=== PATIENT | male | born 1965 | race Caucasian/White ===

== ENCOUNTER 2023-03-15 11:31 | Emergency (ER) | payer OTHER, SELFPAY ==
--- NOTE | ~2023-03-15 | CT_ITS ---
EXAMINATION: CT ABDOMEN AND PELVIS WITHOUT CONTRAST CLINICAL INFORMATION: Left upper quadrant and left lower quadrant and flank pain. Vomiting. COMPARISON: None available. TECHNIQUE: Multidetector volumetric imaging was performed from the superior aspect of the liver through the pubic symphysis. Sagittal and coronal reformatted images were obtained on the technologist's workstation. This CT examination was performed using dose optimization techniques as appropriate, variously including the following: *Automated exposure control *Adjustment of mA and/or kV according to patient size (this includes techniques or standardized protocols for targeted exams where dose is matched to indication/reason for exam; i.e. extremities or head) *Use of iterative reconstruction technique DLP: 672 mGy-cm FINDINGS: LUNG BASES: The visualized lung bases are unremarkable. LIVER, GALLBLADDER, AND BILIARY TREE: The liver is normal in size, shape, and attenuation. No focal hepatic lesion or biliary ductal dilatation is present. The gallbladder is unremarkable with no evidence of radiopaque gallstones, gallbladder wall thickening, or obvious pericholecystic inflammatory changes. PANCREAS: Unremarkable. SPLEEN: Unremarkable. ADRENAL GLANDS: Unremarkable. KIDNEYS AND URETERS: Mild left hydronephrosis from a 2 x 4 mm left UPJ stone. Punctate 1 to 2 mm left lower pole renal stone. 3 mm right lower pole renal stone. BLADDER: Not optimally distended. GASTROINTESTINAL TRACT: The small and large bowel are unremarkable. The appendix is unremarkable. ABDOMINAL WALL: Small umbilical hernia containing fat. LYMPH NODES: Normal. VASCULAR: Atherosclerotic disease. No aneurysm. PELVIC VISCERA: Unremarkable. OSSEOUS STRUCTURES: Unremarkable. CT/CT abdomen pelvis wo IV con IMPRESSION: Mild left hydronephrosis from a 2 x 4 mm left UPJ stone. Small bilateral renal stones. Fleischner guidelines were followed.
[2023-03-15 12:26] VITALS: BP 143/82; PULSE 64; RESP 16; TEMP 37; O2SAT 98; BMI 32.2
--- NOTE | 2023-03-15 12:27 | ED_ITS ---
HPI - Abdominal Pain General Chief Complaint: Abdominal Pain <RONALD Carlton - Last Filed: 03/15/23 12:30> Stated Complaint: Abdominal Pain Vomiting <RONALD Carlton - Last Filed: 03/15/23 12:30> Time Seen by Provider: 03/15/23 16:05 <RONALD Carlton - Last Filed: 03/15/23 12:30> Source: patient <Kaveh Cavazos MD - Last Filed: 03/16/23 00:55> Mode of arrival: ambulatory <Kaveh Cavazos MD - Last Filed: 03/16/23 00:55> Limitations: no limitations <Kaveh Cavazos MD - Last Filed: 03/16/23 00:55> History of Present Illness HPI narrative: Patient with no significant past medical history woke up from sleep at 02:00 with left flank pain radiating to the left lower abdomen patient never had similar in the no history of kidney stone <Kaveh Cavazos MD - Last Filed: 03/16/23 00:55> Related Data Home Medications: Previous Rx's Medication Instructions Recorded oxycodone 5 mg tablet 5 mg PO Q6H PRN pain #20 tabs 03/15/23 tamsulosin 0.4 mg capsule (Flomax) 0.4 mg PO BEDTIME #10 caps 03/15/23 <RONALD Carlton - Last Filed: 03/15/23 12:30> Allergies/Adverse Reactions: Allergies Allergy/AdvReac Type Severity Reaction Status Date / Time No Known Allergies Allergy Verified 03/15/23 12:28 <RONALD Carlton - Last Filed: 03/15/23 12:30> Review of Systems Review of Systems Yes all other systems are reviewed and are negative <Kaveh Cavazos MD - Last Filed: 03/16/23 00:55> PMF Social History Social History: Social History Smoked in Last 30 Days: No Use of substances other than those prescribed or required for medical reasons: No Advance Directives: No Advance Directives Information Provided: Yes <RONALD Carlton - Last Filed: 03/15/23 12:30> Physical Exam ED Vital Signs: Vital Signs - 24 hr 03/15/23 12:26 03/15/23 16:26 03/15/23 18:29 Temperature 98.6 F 98.2 F Pulse Rate 64 67 71 Respiratory Rate 16 16 18 Blood Pressure 143/82 H 153/72 H 123/69 Pulse Oximetry 98 97 98 Oxygen Delivery Method Room Air Room Air Room Air BMI result Body Mass Index 32.2 <RONALD Carlton - Last Filed: 03/15/23 12:30> Vital Signs - 24 hr 03/15/23 12:26 03/15/23 16:26 03/15/23 18:29 Temperature 98.6 F 98.2 F Pulse Rate 64 67 71 Respiratory Rate 16 16 18 Blood Pressure 143/82 H 153/72 H 123/69 Pulse Oximetry 98 97 98 Oxygen Delivery Method Room Air Room Air Room Air BMI result Body Mass Index 32.2 <Kavhe Cavazos MD - Last Filed: 03/16/23 00:55> Appearance: Alert. Oriented X3. No acute distress. Eyes: PERRLA, No Nystagmus ENT: Pharynx normal. Oral Mucosa moist Neck: Normal inspection. Neck supple. CVS: Normal heart rate and rhythm. Pulses normal. Respiratory: No respiratory distress. Equal air entry bilateral, no wheezing/rales/rhonchi Abdomen: Soft and nontender. Bowel sounds are present, no mass palpable, left CVA tenderness ++ Skin: Skin warm and dry. Normal skin color. Normal skin turgor. Extremities: No lower extremity edema. No calf tenderness Neuro: Oriented X 3. <Kaveh Cavazos MD - Last Filed: 03/16/23 00:55> Course Course Course Narrative: RME - 57 yo male presents to the ER for evaluation of acute onset of left sided abdominal pain and vomiting that started at 2:30am. Pain is in the LUQ, left flank and radiates down into the LLQ. No urinary symptoms. No fever or chi lls. Plan: labs, UA, CT abd/pelvis <RONALD Carlton - Last Filed: 03/15/23 12:30> Medical Decision Making Medical Decision Making MDM Narrative: Patient with left UPJ 2 x 4 mm stone mild hydronephrosis will give IV fluids pain management <Kaveh Cavazos MD - Last Filed: 03/16/23 00:55> Lab Data [facility] Lab Attestation statement: I reviewed the patient's lab results. <Kaveh Cavazos MD - Last Filed: 03/16/23 00:55> Result Diagrams: 03/15/23 12:48 03/15/23 12:48 <RONALD Carlton - Last Filed: 03/15/23 12:30> Labs: Lab Results 03/15/23 03/15/23 03/15/23 Range/Units 12:48 12:48 16:59 WBC 13.3 H (4.8-10.8) X10*3/uL RBC 4.93 (4.60-5.80) X10*6/uL Hgb 14.6 (14.0-18.0) g/dl Hct 41.8 L (42.0-52.0) % MCV 84.8 (80.0-98.0) fL MCH 29.6 (27.0-33.0) pg MCHC 34.9 (31.0-36.0) g/dl RDW 12.9 (11.0-16.0) % Plt Count 319 (160-400) X10*3/uL MPV 9.2 L (9.4-12.4) fL Immature Gran % (Auto) 0.5 H (0.0-0.4) % Neut % (Auto) 80.5 H (45-73) % Lymph % (Auto) 11.3 L (20-40) % [place] % (Auto) 7.4 (2-11) % Eos % (Auto) 0.1 (0-4) % Baso % (Auto) 0.2 (0-2) % Lymph # (Auto) 1.5 (1.2-4.9) X10*3/uL [place] # (Auto) 1.0 (0.1-1.2) X10*3/uL Eos # (Auto) 0.0 (0.0-0.4) X10*3/uL Baso # (Auto) 0.0 (0.0-0.2) X10*3/uL Abs Immat Gran (auto) 0.06 H (0.00-0.03) X10*3/uL Absolute Neuts (auto) 10.7 H (2.0-8.3) x10*3/uL Absolute Nucleated RBC 0.000 (0.0-0.012) X10*3/uL Nucleated RBC % (auto) 0.0 (0.0-0.2) /100WBC Sodium 144 (135-145) mmol/L Potassium 4.8 (3.3-5.1) mmol/L Chloride 109 H (96-108) mmol/L Carbon Dioxide 29 (22-29) mmol/L Anion Gap 11 L (12-20) BUN 23 H (9-16) mg/dL Creatinine 1.03 (0.5-1.4) mg/dL Estim Creat Clear Calc 93.9 Estimated GFR > 60 Random Glucose 112 (60-115) mg/dL Calcium 9.4 (8.4-10.2) mg/dL Magnesium 1.9 (1.6-2.6) mg/dL Total Bilirubin 1.0 (0.0-1.0) mg/dL Direct Bilirubin 0.2 (0.0-0.5) mg/dL AST 24 (5-37) U/L ALT 46 H (0-40) U/L Alkaline Phosphatase 66 (39-117) U/L Total Protein 6.8 (6.5-8.0) g/dL Albumin 4.4 (3.5-5.0) g/dL Urine Color Yellow Urine Appearance Clear Urine pH 6.0 (5.0-9.0) Ur Specific [place] 1.020 (1.005-1.025) Urine Protein Negative (Neg-Trace) mg/dL Urine Glucose (UA) Negative (Negative) mg/dL Urine Ketones Trace (Negative) mg/dL Urine Blood Small (1+) H (Negative) Urine Nitrite Negative (Negative) Ur Leukocyte Esterase Negative (Negative) Urine RBC 0-2 (0-2) /HPF Urine WBC 0-5 (0-5) /HPF Ur Squamous Epith Cells 0-2 (0-2) /HPF Urine Bacteria None Seen (None Seen) Hyaline Casts 0-2 (0-2) /LPF <RONALD Carlton - Last Filed: 03/15/23 12:30> Lab Results 03/15/23 03/15/23 03/15/23 Range/Units 12:48 12:48 16:59 WBC 13.3 H (4.8-10.8) X10*3/uL RBC 4.93 (4.60-5.80) X10*6/uL Hgb 14.6 (14.0-18.0) g/dl Hct 41.8 L (42.0-52.0) % MCV 84.8 (80.0-98.0) fL MCH 29.6 (27.0-33.0) pg MCHC 34.9 (31.0-36.0) g/dl RDW 12.9 (11.0-16.0) % Plt Count 319 (160-400) X10*3/uL MPV 9.2 L (9.4-12.4) fL Immature Gran % (Auto) 0.5 H (0.0-0.4) % Neut % (Auto) 80.5 H (45-73) % Lymph % (Auto) 11.3 L (20-40) % [place] % (Auto) 7.4 (2-11) % Eos % (Auto) 0.1 (0-4) % Baso % (Auto) 0.2 (0-2) % Lymph # (Auto) 1.5 (1.2-4.9) X10*3/uL [place] # (Auto) 1.0 (0.1-1.2) X10*3/uL Eos # (Auto) 0.0 (0.0-0.4) X10*3/uL Baso # (Auto) 0.0 (0.0-0.2) X10*3/uL Abs Immat Gran (auto) 0.06 H (0.00-0.03) X10*3/uL Absolute Neuts (auto) 10.7 H (2.0-8.3) x10*3/uL Absolute Nucleated RBC 0.000 (0.0-0.012) X10*3/uL Nucleated RBC % (auto) 0.0 (0.0-0.2) /100WBC Sodium 144 (135-145) mmol/L Potassium 4.8 (3.3-5.1) mmol/L Chloride 109 H (96-108) mmol/L Carbon Dioxide 29 (22-29) mmol/L Anion Gap 11 L (12-20) BUN 23 H (9-16) mg/dL Creatinine 1.03 (0.5-1.4) mg/dL Estim Creat Clear Calc 93.9 Estimated GFR > 60 Random Glucose 112 (60-115) mg/dL Calcium 9.4 (8.4-10.2) mg/dL Magnesium 1.9 (1.6-2.6) mg/dL Total Bilirubin 1.0 (0.0-1.0) mg/dL Direct Bilirubin 0.2 (0.0-0.5) mg/dL AST 24 (5-37) U/L ALT 46 H (0-40) U/L Alkaline Phosphatase 66 (39-117) U/L Total Protein 6.8 (6.5-8.0) g/dL Albumin 4.4 (3.5-5.0) g/dL Urine Color Yellow Urine Appearance Clear Urine pH 6.0 (5.0-9.0) Ur Specific [place] 1.020 (1.005-1.025) Urine Protein Negative (Neg-Trace) mg/dL Urine Glucose (UA) Negative (Negative) mg/dL Urine Ketones Trace (Negative) mg/dL Urine Blood Small (1+) H (Negative) Urine Nitrite Negative (Negative) Ur Leukocyte Esterase Negative (Negative) Urine RBC 0-2 (0-2) /HPF Urine WBC 0-5 (0-5) /HPF Ur Squamous Epith Cells 0-2 (0-2) /HPF Urine Bacteria None Seen (None Seen) Hyaline Casts 0-2 (0-2) /LPF <Kaveh Cavazos MD - Last Filed: 03/16/23 00:55> Radiology Impression Discussion of test interpretation with radiology: I have reviewed the radiologist's reading. <Kaveh Cavazos MD - Last Filed: 03/16/23 00:55> Radiologist Impression: CT/CT abdomen pelvis wo IV con IMPRESSION: Mild left hydronephrosis from a 2 x 4 mm left UPJ stone. Small bilateral renal stones.? ? Fleischner guidelines were followed. <Kaveh Cavazos MD - Last Filed: 03/16/23 00:55> Medications Administered Discontinued Medications Generic Name Dose Route Start Last Admin Trade Name Freq PRN Reason Stop Dose Admin Sodium Chloride 1,000 mls @ 999 mls/hr 03/15/23 16:12 03/15/23 18:27 Ns IV 03/15/23 17:12 Infused .Q1H1M ONE Infusion Ketorolac Tromethamine 30 mg 03/15/23 16:12 03/15/23 17:19 Ketorolac Tromethamine 30 Mg/Ml Vial IVPUSH 03/15/23 16:13 30 mg ONCE ONE Administration Morphine Sulfate 4 mg 03/15/23 16:12 03/15/23 17:19 Morphine Sulfate 4 Mg/Ml Cartridge IVPUSH 03/15/23 16:13 4 mg ONCE ONE Administration Protocol Ondansetron HCl 4 mg 03/15/23 16:12 03/15/23 17:19 Ondansetron Hcl 4 Mg/2 Ml Vial IVPUSH 03/15/23 16:13 4 mg ONCE ONE Administration Oxycodone HCl 5 mg 03/15/23 17:56 03/15/23 18:28 Oxycodone Hcl Immed Release 5 Mg Tablet PO 03/15/23 17:57 5 mg ONCE ONE Administration Tamsulosin HCl 0.4 mg 03/15/23 16:12 03/15/23 17:19 Tamsulosin Hcl 0.4 Mg Capsule PO 03/15/23 16:13 0.4 mg ONCE ONE Administration <RONALD Carlton - Last Filed: 03/15/23 12:30> Medications Administered Discontinued Medications Generic Name Dose Route Start Last Admin Trade Name Aleida PRN Reason Stop Dose Admin Sodium Chloride 1,000 mls @ 999 mls/hr 03/15/23 16:12 03/15/23 18:27 Ns IV 03/15/23 17:12 Infused .Q1H1M ONE Infusion Ketorolac Tromethamine 30 mg 03/15/23 16:12 03/15/23 17:19 Ketorolac Tromethamine 30 Mg/Ml Vial IVPUSH 03/15/23 16:13 30 mg ONCE ONE Administration Morphine Sulfate 4 mg 03/15/23 16:12 03/15/23 17:19 Morphine Sulfate 4 Mg/Ml Cartridge IVPUSH 03/15/23 16:13 4 mg ONCE ONE Administration Protocol Ondansetron HCl 4 mg 03/15/23 16:12 03/15/23 17:19 Ondansetron Hcl 4 Mg/2 Ml Vial IVPUSH 03/15/23 16:13 4 mg ONCE ONE Administration Oxycodone HCl 5 mg 03/15/23 17:56 03/15/23 18:28 Oxycodone Hcl Immed Release 5 Mg Tablet PO 03/15/23 17:57 5 mg ONCE ONE Administration Tamsulosin HCl 0.4 mg 03/15/23 16:12 03/15/23 17:19 Tamsulosin Hcl 0.4 Mg Capsule PO 03/15/23 16:13 0.4 mg ONCE ONE Administration <Kaveh Cavazos MD - Last Filed: 03/16/23 00:55> Discharge Plan Discharge Clinical Impression: Kidney stone on left side <RONALD Carlton - Last Filed: 03/15/23 12:30> Patient Disposition: Home, Self-Care <RONALD Carlton - Last Filed: 03/15/23 12:30> Instructions: Kidney Stones (ED) <RONALD Carlton - Last Filed: 03/15/23 12:30> Additional Instructions: Drink plenty of fluids Pain medication and Flomax as prescribed Follow-up with urologist Report to ER if pain gets worse Your stone likely will pass <RONALD Carlton - Last Filed: 03/15/23 12:30> Prescriptions: New oxycodone 5 mg tablet 5 mg PO Q6H PRN (Reason: pain) Qty: 20 0RF Rx Instructions: Partial Fill upon patient request. tamsulosin [Flomax] 0.4 mg capsule 0.4 mg PO BEDTIME Qty: 10 0RF <RONALD Carlton - Last Filed: 03/15/23 12:30> Referrals: Valente Mayfield MD [Physician] - 3 days <RONALD Carlton - Last Filed: 03/15/23 12:30> Interventions: ED Discharge Assessment Last Done: 03/15/23 18:41 <RONALD Carlton - Last Filed: 03/15/23 12:30> Discharge Date/Time: 03/15/23 18:42 <RONALD Carlton - Last Filed: 03/15/23 12:30>
[2023-03-15 12:54] LABS: MANUAL DIFF FLAG NO
[2023-03-15 12:57] LABS: Basophils Percent Auto 0.2 % (0-2); Eosinophils Percent Auto 0.1 % (0-4); Hematocrit 41.8 % (42.0-52.0); Hemoglobin 14.6 g/dl (14.0-18.0); Imm Gran Abs Auto 0.06 X10*3/uL (0.00-0.03); Imm Gran Pct Auto 0.5 % (0.0-0.4); Lymphocytes Absolute Auto 1.5 X10*3/uL (1.2-4.9); Lymphocytes Percent Auto 11.3 % (20-40); Mean Corpuscular HGB Conc 34.9 g/dl (31.0-36.0); Mean Corpuscular Hemoglobin 29.6 pg (27.0-33.0); Mean Corpuscular Volume 84.8 fL (80.0-98.0); Mean Platelet Volume 9.2 fL (9.4-12.4); Monocytes Percent Auto 7.4 % (2-11); Neutrophils Absolute Auto 10.7 x10*3/uL (2.0-8.3); Neutrophils Percent Auto 80.5 % (45-73); Platelet Count 319 X10*3/uL (160-400); Red Blood Count 4.93 X10*6/uL (4.60-5.80); Red Cell Distribution Width 12.9 % (11.0-16.0); White Blood Count 13.3 X10*3/uL (4.8-10.8)
[2023-03-15 13:11] LABS: Alanine Aminotransferase 46 U/L (0-40); Albumin Level 4.4 g/dL (3.5-5.0); Alkaline Phosphatase 66 U/L (39-117); Anion Gap 11 (12-20); Aspartate Amino Transferase 24 U/L (5-37); Bilirubin Direct 0.2 mg/dL (0.0-0.5); Blood Urea Nitrogen 23 mg/dL (9-16); Calcium 9.4 mg/dL (8.4-10.2); Carbon Dioxide 29 mmol/L (22-29); Chloride 109 mmol/L (96-108); Creatinine Clr Calc Pharmacy 93.9; Estimated Glomerular Filt Rate > 60; Glucose Random 112 mg/dL (60-115); Magnesium 1.9 mg/dL (1.6-2.6); Potassium 4.8 mmol/L (3.3-5.1); Sodium 144 mmol/L (135-145); Total Protein 6.8 g/dL (6.5-8.0)
[2023-03-15 16:26] VITALS: BP 153/72; PULSE 67; RESP 16; TEMP 36.8; O2SAT 97
[2023-03-15 17:09] LABS: Appearance Urine Clear; Color Urine Yellow; Glucose Urine UA Negative (Negative); Leukocyte Esterase Urine Negative (Negative); Nitrite Urine Negative (Negative); UMIC TRIGGER UACC YES; Urine Blood Small (1+) (Negative); Urine Ketones Trace mg/dL (Negative); Urine Protein Negative (Neg-Trace)
[2023-03-15 17:17] LABS: Bacteria Urine None Seen (None Seen); Hyaline Casts Urine 0-2 /LPF (0-2); RBC Urine 0-2 /HPF (0-2); Squamous Epithelial Cell Urine 0-2 /HPF (0-2); WBC Urine 0-5 /HPF (0-5)
[2023-03-15] MEDS: 0.9 % Sodium Chloride 1,000 ML 999 ML IV (17:18)
[2023-03-15] MEDS: Tamsulosin HCL 0.4 MG CAPSULE PO (17:19)
[2023-03-15] MEDS: Morphine Sulfate 4 MG/ML CARTRIDGE IVPUSH (17:19)
[2023-03-15] MEDS: ondansetron HCL 4 MG/2 ML VIAL IVPUSH (17:19)
[2023-03-15] MEDS: Ketorolac Tromethamine 30 MG/ML VIAL IVPUSH (17:19)
[2023-03-15] MEDS: oxyCODONE HCl Immed Release 5 MG TABLET PO (18:28)
[2023-03-15 18:29] VITALS: BP 123/69; PULSE 71; RESP 18; O2SAT 98
== END 2023-03-15 18:42 | disposition home or self-care (01) ==
PROVIDERS: Physician Assistant; Emergency Provider Internal Medicine; PCP Internal Medicine
DX: N13.2 Hydronephrosis with renal and ureteral calculous obstruction (principal); R10.9 Unspecified abdominal pain
CPT/HCPCS: 36415; 74176; 80048; 80076; 81001; 83735; 85025; 96361; 96374; 96375; 99284; J1885; J2270; J2405

== ENCOUNTER → 2023-04-07 10:03 | Outpatient (BNVA) | payer OTHER, SELFPAY | PROVIDERS: PCP Internal Medicine; Visit Provider Nurse Practitioner Family | DX: N20.0 Calculus of kidney (principal) | CPT/HCPCS: 99202 ==

== ENCOUNTER 2023-04-21 09:50 | Outpatient (REF) | payer OTHER, SELFPAY ==
--- NOTE | ~2023-04-21 | US_ITS ---
EXAMINATION: US RETROPERITONEAL LIMITED (RENAL ONLY) CLINICAL INFORMATION: Calculus of kidney. COMPARISON: CT abdomen and pelvis 03/15/2023. TECHNIQUE: Real-time imaging of the kidneys. FINDINGS: RIGHT KIDNEY: 11.0 x 6.2 x 4.6 cm (SAG x AP x TRV). The kidney is normal in size, contour, and echogenicity. Renal cortical thickness is normal. No focal parenchymal lesions or hydronephrosis. Lower pole nonobstructing calculus measures 6 mm. Midpole nonobstructing calculus measures 6 mm. Midpole nonobstructing calculus measures 4 mm. LEFT KIDNEY: 12.4 x 5.7 x 4.5 cm (SAG x AP x TRV). The kidney is normal in size, contour, and echogenicity. Renal cortical thickness is normal. No calculi or focal parenchymal lesions. No hydronephrosis. US/US renal BI IMPRESSION: Nonobstructing right renal calculi. No hydronephrosis.
== END 2023-04-21 09:51 | disposition home or self-care (01) ==
LOC: HO.US 09:50
PROVIDERS: Visit Provider Nurse Practitioner Family
DX: N20.0 Calculus of kidney (principal)
CPT/HCPCS: 76775

== ENCOUNTER 2023-05-16 11:39 | Outpatient (AMB) | payer OTHER, SELFPAY ==
--- NOTE | 2023-05-16 11:41 | A.OFFVIS_ITS ---
Intake Intake Visit Reasons: 1m/US(SET) Intake Note: Patient presents for follow up ultrasound/nephrolithiasis (imaging 04/11/23) Urology Medications: Vitamin B6 Blood thinners: none Insights Manager Required: No Accompanied by: Self / Same As Patient Allergies No Known Allergies Allergy (Verified 05/16/23 22:17) Medication List - Last Reconciled 05/16/23 by STANISLAV Baltazar pyridoxine (vitamin B6) 100 mg PO DAILY 90 days HPI HPI Comments History of Present Illness Details Ed is a pleasant 57-year-old male patient of Dr. Renner. He presents to the office today for follow-up. Of note, patient was seen approximately 5 weeks ago as a new patient for nephrolithiasis at which time a renal ultrasound was ordered for further assessment evaluation. These results were reviewed with the patient today. Right kidney with 6 mm lower pole calculus, mid pole 6 mm calculus and 4 mm nonobstructing mid pole calculus. Left kidney with no calculi, lesions, and or hydronephrosis noted. When asked patient reports to be doing and feeling well. He reports compliance with vitamin B6 and attempts to continue drinking plenty of water daily. He does however report very infrequent/intermittent episodes of urinary urgency, urinary frequency and dysuria. He otherwise denies incontinence, nocturia, hematuria, foul smelling urine, changes to urinary stream, flank pain, fever, and or chills. He is happy with his current voiding parameters. In office urinalysis results reviewed with the patient today. Discussed at length potential causes for nephrolithiasis as well as further workup with 24 hour urine collection and labs verses continuation of surveillance monitoring. Review of Systems Const All systems reviewed & are unremarkable except as noted in HPI and below Reports no additional complaints Eyes Reports no additional complaints ENT Reports no additional complaints Card Reports no additional complaints Resp Reports no additional complaints GI Reports no additional complaints Reports as per HPI Musc Reports no additional complaints Neuro Reports no additional complaints Psych Reports no additional complaints Endo Reports no additional complaints Sage/Lymph Reports no additional complaints Aller/Immun Reports no additional complaints Physical Exam Const General: cooperative, comfortable, no acute distress, well developed, alert and awake Orientation/consciousness: patient oriented x3 HEENT Head: Yes normal to inspection, Yes normocephalic and Yes atraumatic Ears: hearing grossly normal bilaterally Eyes General: appearance normal, both eyes and all related structures Neck Neck: Yes normal visual inspection and Yes trachea midline Chest Chest palpation & inspection: normal inspection of the chest Resp Effort & Inspection: normal respiratory effort and able to speak in complete sentences Cardio Rate: regular rate GI Inspection: Yes normal to inspection General: Yes no CVA tenderness Back/Spine/Pelvis Back: no CVA tenderness Skin General skin exam: no rashes or lesions noted Neuro General: patient oriented x3 Extrem General: Yes normal to inspection Psych Appearance: grossly normal and well kempt Mental Status: mental status grossly normal Speech and movement: Normal speech and movement present and Clear speech present Affect: normal affect Attitude: cooperative Thought process: Normal thought process present Thought content: Normal thought content present Insight: Good insight present (Psych) Results AMB Urinalysis, Automated UA Leukoctes 0 Jeremiah/uL Last Edit by Gift Card Impressions on 05/16/23 11:55 UA Nitrite Negative Last Edit by Gift Card Impressions on 05/16/23 11:55 UA Urobilinogen 0.2 mg/dL Last Edit by Gift Card Impressions on 05/16/23 11:55 UA Protein 0 mg/dL Last Edit by Gift Card Impressions on 05/16/23 11:55 UA pH 6.0 Last Edit by Gift Card Impressions on 05/16/23 11:55 UA Blood 0 Aaron/uL Last Edit by Gift Card Impressions on 05/16/23 11:55 UA Specific [place] 1.020 Last Edit by Gift Card Impressions on 05/16/23 11:55 UA Ketone Negative Last Edit by Gift Card Impressions on 05/16/23 11:55 UA Bilirubin 0 mg/dL Last Edit by Gift Card Impressions on 05/16/23 11:55 UA Glucose 0 mg/dL Last Edit by Gift Card Impressions on 05/16/23 11:55 Results Reviewed Results Reviewed: Laboratory Last Values Urine pH (Auto) 6.0 05/16/23 11:42 Specific [place] (Auto) 1.020 05/16/23 11:42 Urine Protein (Auto) 0 mg/dL 05/16/23 11:42 Glucose (UA)(Auto) 0 mg/dL 05/16/23 11:42 Urine Ketones (Auto) Negative 05/16/23 11:42 Urine Blood (Auto) 0 Aaron/uL 05/16/23 11:42 Urine Nitrite (Auto) Negative 05/16/23 11:42 Urine Bilirubin (Auto) 0 mg/dL 05/16/23 11:42 Urine Urobilinogen (Auto) 0.2 mg/dL 05/16/23 11:42 Leukocyte Esterase (Auto) 0 Jeremiah/uL 05/16/23 11:42 Date of Service: 04/21/23 Procedure(s): US renal BI EXAMINATION: US RETROPERITONEAL LIMITED (RENAL ONLY) FINDINGS: RIGHT KIDNEY: 11.0 x 6.2 x 4.6 cm (SAG x AP x TRV). The kidney is normal in size, contour, and echogenicity. Renal cortical thickness is normal. No focal parenchymal lesions or hydronephrosis. Lower pole nonobstructing calculus measures 6 mm. Midpole nonobstructing calculus measures 6 mm. Midpole nonobstructing calculus measures 4 mm. LEFT KIDNEY: 12.4 x 5.7 x 4.5 cm (SAG x AP x TRV). The kidney is normal in size, contour, and echogenicity. Renal cortical thickness is normal. No calculi or focal parenchymal lesions. No hydronephrosis. IMPRESSION: Nonobstructing right renal calculi. No hydronephrosis. Assessment & Plan Assessment & Plan (1) Nephrolithiasis: Code(s): N20.0 - Calculus of kidney (2) Lower urinary tract symptoms: Code(s): R39.9 - Unspecified symptoms and signs involving the genitourinary system Plan In office urinalysis results reviewed with the patient today. Recent renal ultrasound results reviewed with the patient today; as noted above. Patient reporting very infrequent intermittent episodes of urinary frequency, urinary urgency and dysuria; however not bothersome Patient reports be happy with current voiding parameters. Continue vitamin B6 daily. Continue adding 1 oz of lemon juice to water daily. Discussed further nephrolithiasis workup with 24 hour urine collection and labs Will continue with surveillance monitoring Educated, encouraged, instructed on the importance of drinking plenty of water daily. Will obtain renal ultrasound and KUB in 6 months. Follow-up in 6 months with imaging to be completed prior; or sooner with any issues, concerns, and or questions. Orders: Orders US retroperitoneal limited 6 Months N20.0 - Calculus of kidney, R39.9 - Unspecified symptoms and signs involving the genitourinary system XR KUB 6 Months N20.0 - Calculus of kidney AMB Urinalysis Automated Today Z13.9 - Encounter for screening, unspecified Patient Instructions: The patient had an opportunity to ask questions regarding the treatment plan. All questions were answered. Physical exam, labs, and imaging were discussed and reviewed in detail. As well as risks, benefits, and discussion of treatment choices. No major barriers to understanding were identified. The patient expressed understanding and agreement with the above treatment plan. The patient was made aware they should contact our office by phone for worsening of their current condition, the appearance of new symptoms, or with any questions or concerns. Compliance is encouraged with any medications and follow up testing that is ordered. It is a privilege to be allowed the opportunity to participate in? your urological care.? Again, if you have any questions or concerns If you have any questions or concerns please do not hesitate to contact me. The office is [phone]. This note is constructed using voice recognition software. While every effort has been made to ensure accuracy pumping plant operator errors may have been included. Yours sincerely, STANISLAV Baltazar Coding Level of Care Code Est Pt Level 3 (42957) Diagnoses Nephrolithiasis N20.0 Lower urinary tract symptoms R39.9
== END 2023-05-16 12:29 | disposition home or self-care (01) ==
PROVIDERS: PCP Internal Medicine; Visit Provider Nurse Practitioner Family
DX: N20.0 Calculus of kidney (principal); R39.9 Unspecified symptoms and signs involving the genitourinary system
CPT/HCPCS: 99213

== ENCOUNTER → 2023-05-16 11:39 | Outpatient (BNVA) | payer OTHER, SELFPAY | PROVIDERS: PCP Internal Medicine; Visit Provider Nurse Practitioner Family | DX: N20.0 Calculus of kidney (principal); R39.9 Unspecified symptoms and signs involving the genitourinary system | CPT/HCPCS: 99212 ==